=== PATIENT | female | born 1960 | race Asian ===

== ENCOUNTER 2018-04-08 20:18 | Emergency (ER) | payer OTHER, SELFPAY ==
[2018-04-08 20:27] VITALS: BP 175/109; PULSE 95; RESP 20; TEMP 36.8; O2SAT 99; BMI 30.9
[2018-04-08] MEDS: PHENAZOPYRIDINE 100 MG TABLET 200 MG PO (20:37)
[2018-04-08 20:39] LABS: Bacteria Urine None Seen
--- NOTE | 2018-04-08 20:40 | ED_ITS ---
HPI - Female Genitourinary <Chaya Evans PA-C - Last Filed: 04/08/18 21:12> General Chief complaint: Urogenital-Female Stated complaint: UTI BLEEDING Time Seen by Provider: 04/08/18 20:27 Source: patient Mode of arrival: ambulatory Limitations: no limitations History of Present Illness HPI Narrative: This 57-year-old female comes to ED due to concern for urinary infection. She states that she had acute onset of dysuria, frequency, and hematuria this afternoon. She has bladder pain but no abdominal pain. She denies fever, chills, sweats, nausea or vomiting and has been eating normally. She states that she has some right flank and lower back area pain for the last 2 weeks with bending over, but denies any new flank pain and states back pain has not changed today. She denies any other new complaints today on systems review. She states that she had a UTI a few years ago with hematuria like this. Related Data Home Medications Medication Instructions Recorded Confirmed ASPIRIN (#ASPIRIN CHILDREN'S) 80 mg PO Q DAY #0 11/02/11 ESOMEPRAZOLE SODIUM (NEXIUM) 20 mg PO QDAY #0 11/02/11 hydrochlorothiazide 25 mg PO QDAY #0 11/02/11 lisinopril 20 mg PO QDAY #0 11/02/11 metformin [Fortamet] 1,000 mg PO HS #0 11/02/11 simvastatin PO HS #0 11/02/11 Previous Rx's Medication Instructions Recorded nitrofurantoin monohyd/m-cryst 100 mg PO Q12H 4 Days #8 cap 04/08/18 [Macrobid] phenazopyridine [Pyridium] 200 mg PO Q8H PRN 2 Days #6 tab 04/08/18 Allergies Allergy/AdvReac Type Severity Reaction Status Date / Time No Known Drug Allergies Allergy Verified 04/08/18 20:30 Review of Systems <Chaya vEans PA-C - Last Filed: 04/08/18 21:12> Review of Systems All systems reviewed & are unremarkable except as noted in HPI and below PFSH <BONNIE García Last Filed: 04/08/18 21:12> Comment: Remote former social smoker, rare EtOH Exam <Chaya Evans PA-C - Last Filed: 04/08/18 21:12> Narrative Exam Narrative: GENERAL APPEARANCE: Patient standing, in NAD LUNGS: Clear to auscultation bilaterally. HEART: Rate and rhythm regular without murmur, normal S1 and S2, no S3 or S4. ABDOMEN: Soft, mild suprapubic tenderness, no tenderness elsewhere over the abdomen, ND, +BS x 4 quadrants, no CVAT. Initial Vital Signs Initial Vital Signs: Vital Signs Temperature 98.2 F 04/08/18 20:27 Pulse Rate 95 H 04/08/18 20:27 Respiratory Rate 20 04/08/18 20:27 Blood Pressure 175/109 H 04/08/18 20:27 Pulse Oximetry 99 04/08/18 20:27 <DO Eloy Thorne Last Filed: 04/09/18 00:43> Initial Vital Signs Initial Vital Signs: Vital Signs Temperature 98.2 F 04/08/18 20:27 Pulse Rate 95 H 04/08/18 20:27 Respiratory Rate 20 04/08/18 20:27 Blood Pressure 175/109 H 04/08/18 20:27 Pulse Oximetry 99 04/08/18 20:27 Course <Chaya Evans PA-C - Last Filed: 04/08/18 21:12> Orders Ordered: ED Orders 04/08/18 20:25 Urinalysis and Microscopic Stat Urine Culture Stat Discontinued Medications Nitrofurantoin Macrocrystals (Macrobid 100mg Prepack) 1 bottle MISC SEEINSTR ONE Stop: 04/08/18 20:53 Last Admin: 04/08/18 20:57 Dose: 1 bottle Phenazopyridine HCl (Pyridium) 200 mg PO NOW ONE Stop: 04/08/18 20:35 Last Admin: 04/08/18 20:37 Dose: 200 mg Phenazopyridine HCl (Pyridium 100mg Prepack) 1 bottle MISC SEEINSTR ONE Stop: 04/08/18 20:53 Last Admin: 04/08/18 20:57 Dose: 1 bottle Vital Signs - 8 hr 04/08/18 20:27 04/08/18 21:05 Temperature 98.2 F Pulse Rate 95 H 88 Respiratory Rate 20 19 Blood Pressure 175/109 H 133/95 H Pulse Oximetry 99 98 <DO Eloy Thorne Last Filed: 04/09/18 00:43> Orders Ordered: ED Orders 04/08/18 20:25 Urinalysis and Microscopic Stat Urine Culture Stat Discontinued Medications Nitrofurantoin Macrocrystals (Macrobid 100mg Prepack) 1 bottle MISC SEEINSTR ONE Stop: 04/08/18 20:53 Last Admin: 04/08/18 20:57 Dose: 1 bottle Phenazopyridine HCl (Pyridium) 200 mg PO NOW ONE Stop: 04/08/18 20:35 Last Admin: 04/08/18 20:37 Dose: 200 mg Phenazopyridine HCl (Pyridium 100mg Prepack) 1 bottle MISC SEEINSTR ONE Stop: 04/08/18 20:53 Last Admin: 04/08/18 20:57 Dose: 1 bottle Vital Signs - 8 hr 04/08/18 20:27 04/08/18 21:05 Temperature 98.2 F Pulse Rate 95 H 88 Respiratory Rate 20 19 Blood Pressure 175/109 H 133/95 H Pulse Oximetry 99 98 MDM - Female Genitourinary <Chaya Evans PA-C - Last Filed: 04/08/18 21:12> Lab Data Attestation: I reviewed the patient's lab results. Lab Results 04/08/18 Range/Units 20:25 Urine Color Red Urine Appearance Cloudy Urine pH 6.5 (4.5-8.0) Ur Specific [place] 1.020 (1.000-1.035) Urine Protein 3+ H (Negative) Urine Glucose (UA) Negative (Normal) g/dL Urine Ketones Trace H (NEGATIVE) Urine Occult Blood 4+ H (Negative) Urine Nitrate Negative (Negative) Urine Bilirubin Negative (NEGATIVE) Urine Urobilinogen 0.2 (0.2) E.U./dL Ur Leukocyte Esterase 1+ H (NEGATIVE) Urine RBC >100/hpf H (0-5/HPF) Urine WBC 10-30/hpf H (0-5/HPF) Urine Bacteria None seen (None) Ur Culture Indicated? Specimen cultured <Ani Donato DO - Last Filed: 04/09/18 00:43> Lab Data Lab Results 04/08/18 Range/Units 20:25 Urine Color Red Urine Appearance Cloudy Urine pH 6.5 (4.5-8.0) Ur Specific [place] 1.020 (1.000-1.035) Urine Protein 3+ H (Negative) Urine Glucose (UA) Negative (Normal) g/dL Urine Ketones Trace H (NEGATIVE) Urine Occult Blood 4+ H (Negative) Urine Nitrate Negative (Negative) Urine Bilirubin Negative (NEGATIVE) Urine Urobilinogen 0.2 (0.2) E.U./dL Ur Leukocyte Esterase 1+ H (NEGATIVE) Urine RBC >100/hpf H (0-5/HPF) Urine WBC 10-30/hpf H (0-5/HPF) Urine Bacteria None seen (None) Ur Culture Indicated? Specimen cultured Discharge Plan Departure Patient Disposition: Home Clinical Impression: Acute UTI Discharge Date/Time: 04/08/18 21:06 Interventions: ED Discharge Assessment Last Done: 04/08/18 21:05 Instructions: DI for Urinary Tract Infection (UTI) Activity Restrictions/Additional Instructions: Please return if you have any acutely worsening symptoms or new symptoms such as fever, vomiting, or new back pain while waiting for the urine cultures to come back. Please take the 1st dose of the antibiotic nitrofurantoin tonight, 2nd dose in the morning, and you can picking tech the remainder of the prescription at your pharmacy tomorrow. You can take the urinary tract pain reliever as needed also. Please be sure to follow up with your PCP to have your urine rechecked to make sure the blood has resolved and also recheck the protein in your urine since you have diabetes Prescriptions: New phenazopyridine [Pyridium] 200 mg tablet 200 mg PO Q8H PRN (Reason: pain) 2 Days Qty: 6 RF: 0 nitrofurantoin monohyd/m-cryst [Macrobid] 100 mg capsule 100 mg PO Q12H 4 Days Qty: 8 RF: 0 No Action ESOMEPRAZOLE SODIUM (NEXIUM) 20 mg PO QDAY Qty: 0 RF: 0 lisinopril 10 MG tablet 20 mg PO QDAY Qty: 0 RF: 0 metformin [Fortamet] 1,000 MG tablet extended release 24hr 1,000 mg PO HS Qty: 0 RF: 0 ASPIRIN (#ASPIRIN CHILDREN'S) 80 mg PO Q DAY Qty: 0 RF: 0 simvastatin 40 mg Tablet PO HS Qty: 0 RF: 0 hydrochlorothiazide 25 MG tablet 25 mg PO QDAY Qty: 0 RF: 0 Ref[facility]: [facility] [Provider Group] <Ani Donato, DO - Last Filed: 04/09/18 00:43> Cosign ED Attending Pedroature Attestation: I was immediately available in the department for consultation. Documentation has been reviewed. I agree with assessment and plan.
[2018-04-08 20:42] LABS: Appearance Urine UA CLOUDY; Bilirubin Urine UA NEGATIVE (NEGATIVE); Color Urine UA RED; Glucose Urine UA NEGATIVE (Normal); Ketones Urine UA TRACE (NEGATIVE); Leukocyte Esterase Urine UA 1+ (NEGATIVE); Nitrite Urine UA NEGATIVE (Negative); Protein Urine UA 3+ (Negative); Urobilinogen Urine UA 0.2 E.U./dL (0.2); pH Urine UA 6.5 (4.5-8.0)
[2018-04-08 20:43] LABS: Occult Blood Urine UA 4+ (Negative)
[2018-04-08 20:44] LABS: Culture Indicated Urine Specimen Cultured; RBC Urine >100/HPF (0-5/HPF); WBC Urine 10-30/HPF (0-5/HPF)
[2018-04-08] MEDS: NITROFURANTOIN 100MG PREPACK 1 BOTTLE MISC (20:57)
[2018-04-08] MEDS: PHENAZOPYRIDINE 100 MG PREPACK 1 BOTTLE MISC (20:57)
[2018-04-08 21:05] VITALS: BP 133/95; PULSE 88; RESP 19; O2SAT 98
== END 2018-04-08 21:06 | disposition home or self-care (01) ==
PROVIDERS: Emergency Provider Internal Medicine
DX: N39.0 Urinary tract infection, site not specified (principal)
CPT/HCPCS: 81001; 87077; 87086; 87186; 99282; 99283